=== PATIENT | male | born 1950 | race Caucasian/White ===

== ENCOUNTER 2016-09-08 22:30 | Observation (INO) | payer MEDICARE, OTHER ==
--- NOTE | ~2016-09-08 | HP ---
History And Physical [place] [id number] [facility] [place]. [address] NAME: PING GLEZ : 50 STATUS : ADM Crystal PAT#: [id number] AGE: 66 ADM/REG DATE : 09/08/16 MR#: [id number] REPORT SERV DATE: 09/09/16 DICTATED BY: JOIE ALMANZA DATE: 09/09/16 REPORT STATUS : Draft TRANSCRIBED BY: MODL DATE: 09/09/16 DATE OF ADMISSION: 09/08/2016 PRIMARY ROVING WINDER: Dr. Ping Ponce. CHIEF COMPLAINT: Palpitations and chest pain. HISTORY OF PRESENT ILLNESS: This is a very pleasant 66-year-old male with prior history of coronary artery disease, who states that yesterday "I did not feel good". He describes feeling weak and tired, and then in the afternoon, he had some loss of appetite. Then after eating, he felt "something different with my heart beat", lasting several seconds accompanied with dizziness, breaking out in a cold sweat and increased nausea. He took a nitroglycerin a few minutes later and had no associated chest pain at that time. He later that evening, observed to be pale by a family member and his systolic blood pressure was in the 150s, so they thought it is best for him to be evaluated. His family drove him to the emergency department. Here at [facility] and in en route, the patient did describe some chest tightness on to the midsternum, for which he took a nitroglycerin and it was relieved. He was feeling better upon arrival to the emergency department around 0815 hours and was given some IV Zofran and admitted to our Chest Pain Observation Unit. He has had no further recurrence of his symptoms while here, although he does mention approximately three weeks ago having a similar episode of palpitations associated with sweating and dizziness. The patient was last seen by Dr. Ponce on 05/15 last year following a cardiac catheterization, which showed some moderate coronary artery disease, which by FFR was not significant. The patient has not had any recent exertional chest pain. He was prescribed nitroglycerin patch to take at night at the April visit and has not been as compliant with this over the last couple weeks, because he has not really had any chest pain. The patient denies any recent fever, cough, or chills. No orthopnea or PND. MEDICAL HISTORY: 1. Coronary artery disease with history of drug-eluting stent to the proximal LAD in 2012. Most recent cardiac catheterization on 04/15/2016 showing a 60% proximal LAD lesion, which by FFR was 0.85, 60% proximal circumflex lesion, and a 60% RCA lesion, which by FFR was 0.96. 2. History of normal EF. 3. Carotid artery disease by carotid duplex less than 50% in 2013 bilaterally. 4. Hypertension. 5. Hyperlipidemia. 6. Sjogren's. 7. Irritable bowel syndrome. 8. GERD. PAST SURGICAL HISTORY: 1. Right inguinal hernia repair. 2. Appendectomy. 3. Cholecystectomy. History And Physical [address] [address] NAME: PING GLEZ : 50 STATUS : ADM Crystal PAT#: [id number] AGE: 66 ADM/REG DATE : 09/08/16 MR#: [id number] REPORT SERV DATE: 09/09/16 DICTATED BY: JOIE ALMANZA DATE: 09/09/16 REPORT STATUS : Draft TRANSCRIBED BY: AME DATE: 09/09/16 4. Hydrocele and spermatocele repair in 04/2016. HOME MEDICATIONS: Aspirin 81 daily, Lipitor 20 at bedtime, Plavix 75 daily, Flonase 1 spray in each nostril daily, Claritin 10 mg daily p.r.n., Hyzaar 100/12.5 daily, Lopressor 12.5 b.i.d., multivitamin daily, nitroglycerin 0.4 mg sublingual p.r.n. for chest pain, Nitro-Dur patch 0.2 mg/hour to apply at bedtime and remove at 1500 hours the next day, Protonix 40 daily, fenofibrate 43 mg p.o. at bedtime. ALLERGIES: TO PENICILLIN CAUSES WELTS AND RASH. SULFA CAUSES NAUSEA AND RASH, AND IPRATROPIUM CAUSES SYNCOPE. SOCIAL HISTORY: The patient is and lives with his . 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 He quit smoking thirty five years ago. Denies alcohol or illicit drug use. FAMILY HISTORY: Father with open-heart surgery and at age 72 of cancer. Sister with open heart surgery in her 60s. REVIEW OF SYSTEMS: Negative except as indicated above. PHYSICAL EXAMINATION: VITAL SIGNS: Blood pressure 160/78, heart rate 68, temperature 97.6, pulse oximetry 99% room air, BMI 27.9. GENERAL: Well developed, well nourished, in no acute distress. HEENT: Anicteric. Normal EOM. Head normocephalic. PERRLA, no xanthelasma. NECK: Supple. No JVD. Carotids normal without bruits. LUNGS: Clear to auscultation bilaterally anterior and posterior. Respirations even and unlabored. CARDIAC: S1, S2 regular rate and rhythm. No murmurs, rubs, or gallops. No chest wall tenderness. ABDOMEN: Normal bowel sounds. Soft and nontender to palpation. No masses or organomegaly. EXTREMITIES: No peripheral edema. DP/PT and radial pulses palpable bilaterally. No clubbing or cyanosis. SKIN: Warm and dry. Normal turgor. No pallor or cyanosis. MUSCULOSKELETAL: Moving all extremities x4. Normal muscle strength. NEURO/PSYCH: Alert and oriented with appropriate affect. LABORATORY DATA: White blood count 8.1, hemoglobin 13.8, hematocrit 42.1. Sodium 143, potassium 3.5, BUN 25, creatinine 1.4. Troponin less than 0.02 x2. EKGs interpreted by myself indicate sinus effie and normal sinus rhythm on two separate EKGs with no indication of ischemia. Chest x-ray shows no acute cardiopulmonary processes. Telemetry, review of telemetry indicates no events overnight. ASSESSMENT/PLAN: 1. Palpitations with presyncope that were self-limiting. The patient has been observed overnight on telemetry and there have been no events. The patient reports a similar History And Physical [address] [place]. [address] NAME: PING GLEZ : 50 STATUS : ADM Crystal PAT#: [id number] AGE: 66 ADM/REG DATE : 09/08/16 MR#: [id number] REPORT SERV DATE: 09/09/16 DICTATED BY: JOIE ALMANZA DATE: 09/09/16 REPORT STATUS : Draft TRANSCRIBED BY: MODL DATE: 09/09/16 episode approximately three weeks ago. This is concerning for perhaps some atrial fibrillation versus ventricular ectopy. I have arranged for the patient to be discharged home and then to go to [facility] today to have an event monitor placed. We will then arrange a followup with Dr. Ponce in approximately one month time. I have discussed with the patient that if these palpitation should worsen or feels like he is going to pass out, and they are sustained, he is to call EMS immediately. 2. Chest pain, relieved with nitroglycerin, one episode recently. Troponins have been negative. No recent exertional chest pain. Plan as above to follow up with Dr. Ponce. Reinforced p.r.n. use of nitroglycerin should he have any chest pains and instructed to come to the emergency department for any chest pain, unrelieved after the third dose. 3. Coronary artery disease with history of stent to the LAD and moderate disease by cardiac catheterization last March, not found to be significant by FFR. The patient is on aspirin and Plavix, but I will increase the intensity of his statin therapy. He is also taking the beta chris at low dose, which I will continue. I have encouraged the patient also to continue with his Nitro-Dur patch at night. 4. Hypertension. Blood pressure controlled. We will continue home medications. 5. Hyperlipidemia, on Lipitor 20 mg at bedtime, we will increase to 40. DBT/MODL Joie Almanza NP / [id number] CC: Monique Fountain, MSN, SHANK ARCHER-BC Norma Alonzo Jr., M.D.
[2016-09-08 20:55] LABS: BASOPHILS 0.2 %; BASOPHILS ABSOLUTE 0.02 10/3/uL (0.0-0.16); EOSINOPHILS 0.9 %; EOSINOPHILS ABSOLUTE 0.07 10/3/uL (0.0-0.53); ER CBC TAT 0 Hrs 03 Mins; HEMATOCRIT 42.1 % (40.0-51.0); HEMOGLOBIN 13.8 g/dL (13.6-17.8); IMMATURE GRANULOCYTES 0.4 %; IMMATURE GRANULOCYTES ABSOLUTE 0.03 10/3/uL (0.0-0.11); LYMPHOCYTES 19.3 %; LYMPHOCYTES ABSOLUTE 1.57 10/3/uL (0.67-4.30); MEAN CORPUS HGB CONC 32.8 g/dL (32.0-36.0); MEAN CORPUSCULAR HEMOGLOB 30.7 pg (26.0-34.0); MEAN PLATELET VOLUME 9.6 fL (9.2-13.0); MONOCYTES 6.8 %; MONOCYTES ABSOLUTE 0.55 10/3/uL (0.21-1.20); NEUTROPHILS 72.4 %; NEUTROPHILS ABSOLUTE 5.88 10/3/uL (2.02-8.40); PLATELET COUNT 229 10/3/uL (150-400); RBC DISTRIBUTION WIDTH 13.4 % (12.0-16.0); RED CELL COUNT 4.49 10/6/uL (4.7-6.1); WHITE BLOOD CELLS 8.1 10/3/uL (4.5-10.5)
[2016-09-08 20:56] LABS: MANUAL DIFF NO %; MEAN CORPUSCULAR VOLUME 93.8 fL (80-100)
[2016-09-08 21:03] LABS: PROTIME (NOT ORD) 13.5 SEC (12.0-14.5)
[2016-09-08 21:12] LABS: CALCIUM, SERUM 8.6 MG/DL (8.5-10.4); CHEST PAIN PROFILE TAT 0 Hrs 20 Mins; CHLORIDE, SERUM 103 MMOL/L (96-112); CO2 (CARBON DIOXIDE) 30 MMOL/L (24-34); CREATININE 1.45 MG/DL (0.70-1.30); GFR AFRICAN AMERICAN 58 ML/MIN (>=60); GFR NON AFRICAN AMERICAN 50 ML/MIN (>=60); POTASSIUM, SERUM 3.5 MMOL/L (3.5-5.3); SODIUM, SERUM 143 MMOL/L (135-148); TROPONIN I <0.02 NG/ML (<0.05)
[2016-09-08 21:13] LABS: BUN (BLOOD UREA NITROGEN) 25 MG/DL (6-23); GLUCOSE, SERUM 128 MG/DL (60-99)
[~2016-09-08 22:30] MED LIST: ACET500CAP PO; ASAB PO; CENTRUM PO; CENTRUM TAB1 TAB PO; CLARIT10 PO; DIOVAN HCT PO; EFFIENT10 PO; FISH-EPA1000 MG PO; HYZAAR 50/12.51 TAB PO; HYZAAR1 TAB PO; LIBRAX PO; LIPITOR20 PO; LOP25 PO; MULTIPLE VIT PO; NITROII10C TOP; NITROSTAT0.4 MG SL; PLAVIX PO; PRILO PO; PROTONIX PO; SINGULAIR1 PO; TRICOR48 PO; ZYRTEC ALLGY10 MG PO
[2016-09-08] MEDS ORDERED: LIPITOR40 PO (22:42)
[2016-09-08] MEDS ORDERED: FENOFIBRATE PO (22:42)
[2016-09-08] MEDS ORDERED: HYZAAR1 TAB PO (22:42)
[2016-09-08] MEDS ORDERED: LOP25 PO (22:42)
[2016-09-08] MEDS ORDERED: PLAVIX PO (22:42)
[2016-09-08] MEDS ORDERED: ASAB PO (22:43)
[2016-09-08] MEDS ORDERED: PROTONIX PO (22:43)
[2016-09-08] MEDS ORDERED: CLARIT10 PO (22:44)
[2016-09-08] MEDS ORDERED: CENTRUM PO (22:44)
[2016-09-08] MEDS ORDERED: FLONASE NAS (22:49)
[2016-09-08] MEDS ORDERED: NITROII10C TOP (22:50)
[2016-09-08] MEDS ORDERED: NITROSTAT0.4 MG SL (22:51)
== END 2016-09-09 12:30 | disposition home or self-care (01) ==
LOC: ER 22:30 → CDU1 23:12 → CDU2 09-09 00:21
PROVIDERS: Specialist
DX: R00.2 Palpitations (principal); R07.9 Chest pain, unspecified; I25.10 Atherosclerotic heart disease of native coronary artery without angina pectoris; I10 Essential (primary) hypertension; E78.5 Hyperlipidemia, unspecified; M35.00 Sjogren syndrome, unspecified; K21.9 Gastro-esophageal reflux disease without esophagitis; F32.9 Major depressive disorder, single episode, unspecified; K58.9 Irritable bowel syndrome, unspecified; Z90.49 Acquired absence of other specified parts of digestive tract; Z79.82 Long term (current) use of aspirin; Z79.02 Long term (current) use of antithrombotics/antiplatelets; Z79.899 Other long term (current) drug therapy; Z88.0 Allergy status to penicillin; Z88.2 Allergy status to sulfonamides; Z88.8 Allergy status to other drugs, medicaments and biological substances; Z87.891 Personal history of nicotine dependence; Z82.49 Family history of ischemic heart disease and other diseases of the circulatory system; Z98.890 Other specified postprocedural states
CPT/HCPCS: 71020; 80048; 83735; 84484; 85025; 85610; 85730; 93005; 96374; 96376; 99285; A9270-GY; G0378; J2405